=== PATIENT | male | born 1930 | race Caucasian/White ===

== ENCOUNTER 2018-03-12 09:18 | Emergency (ER) | payer OTHER ==
[~2018-03-12] VITALS: Ht 175.3 cm; Wt 54.0 kg
--- NOTE | 2018-03-12 09:20 | NUR ---
MELVIN Loco FROM HOME C/O NEAR SYNCOPE, +ORTHO IN THE FIELD, OP=[id number], TO ER BED 5, HOOKED TO MONITOR, AWAITING MD TAPIA
--- NOTE | 2018-03-12 09:55 | NUR ---
CLOTH STOCK SORTER AT BEDSIDE
[2018-03-12] MEDS ORDERED: IV NS 0.9% 1,000 ML BAG IV ONE (10:00)
[2018-03-12] MEDS ORDERED: IV NS 0.9% 500 ML BAG IV ONE (10:00)
[2018-03-12 10:08] LABS: BASOPHILS # (AUTO) 0.1 /CMM (0.0-0.2); EOSINOPHILS % (AUTO) 3.1 % (0.0-6.0); HEMATOCRIT 38 % (39-51); HEMOGLOBIN 12.6 g/dL (13.5-17.5); LYMPHOCYTES # (AUTO) 2.3 /CMM (0.8-4.8); LYMPHOCYTES % (AUTO) 29.8 % (20.0-44.0); MEAN CORPUSCULAR HGB CONC 33 g/dl (31.0-36.0); MEAN CORPUSCULAR VOLUME 89 fL (80-96); MONOCYTES # (AUTO) 0.5 /CMM (0.1-1.30); MONOCYTES % (AUTO) 7.1 % (2.0-12.0); NEUTROPHILS # (AUTO) 4.5 /CMM (1.8-8.9); PLATELET COUNT (AUTO) 158 /CMM (150-450); RED BLOOD CELL COUNT(AUTO) 4.33 MIL/uL (4.5-6.0); WHITE BLOOD COUNT (AUTO) 7.7 K/uL (4.3-11.0)
--- NOTE | 2018-03-12 10:15 | NUR ---
DAUGHTER SABRINA RICH PROVIDED PHONE NUMBER [phone] AND INSTRUCTED TO CONTACT HER ABOUT PATIENT'S CONDITION
--- NOTE | 2018-03-12 10:30 | NUR ---
PT NOT ABLE TO PROVIDE URINE SAMPLE AT THIS TIME, OFFERED IN AND OUT CATH BUT PREFERRED TO USE URINAL.
[2018-03-12 10:47] LABS: CALCIUM, SERUM 8.9 mg/dL (8.5-10.1); CARBON DIOXIDE 26 mmol/L (21-32); CHLORIDE 103 mmol/L (98-107); CREATININE 1.2 mg/dL (0.6-1.3); GLUCOSE 118 mg/dL (74-106); POTASSIUM 3.9 mmol/L (3.5-5.1); SODIUM SERUM 140 mmol/L (136-145); UREA NITROGEN, BLOOD 29 mg/dL (7-18)
--- NOTE | 2018-03-12 10:55 | NUR ---
URINE SAMPLE SENT TO LAB
--- NOTE | 2018-03-12 11:00 | NUR ---
IV LINE AT LAC NOTED WITH SWELING AND RESISTANCE WHEN FLUSHED WITH NS, REMOVED IV CATHETER WITH GOOD TOLERANCE, IV PERIPHERAL LINE STARTED AT R FOREARM, CONTINUED WITH IV FLUID OF NS.
[2018-03-12 11:18] LABS: APPEARANCE,URINE Clear (CLEAR); BILIRUBIN,URINE Negative (NEGATIVE); BLOOD, URINE Trace-lysed Ery/uL (NEGATIVE); COLOR,URINE Yellow (YELLOW); KETONES,URINE Trace (NEGATIVE); LEUKOCYTE ESTERASE ,URINE Negative (NEGATIVE); NITRITE, URINE Negative (NEGATIVE); PH,URINE 5.5 (5.0-8.0); PROTEIN,URINE Trace mg/dl (NEGATIVE); UGLUCOSE Negative (NEGATIVE); UROBILINOGEN,URINE 0.2 EU/dL (0.2)
[2018-03-12 11:19] LABS: BACTERIA,URINE Rare /HPF (None Seen); RBC,URINE 0-2 /HPF (0-2); SQUAMOUS EPITHELIAL CELL,UR Rare /HPF (None Seen); WBC,URINE 0-2 /HPF (0-3)
--- NOTE | 2018-03-12 12:00 | NUR ---
PT FOR DISCHARGE, CONTACTED DAUGHTER SABRINA RICH [phone], AND INFORMED THAT SHE'LL BE ABLE TO PAN CLEANER PT IN 2 HOURS.
--- NOTE | 2018-03-12 14:38 | NUR ---
Patient discharged to home with daughter in stable condition. Written and verbal after care instructions given. Patient verbalizes understanding of instruction.
[2018-03-12 14:40] VITALS: BP 148/82
== END 2018-03-12 14:41 | disposition home or self-care (01) ==
LOC: ER 09:20
DX: E86.0 Dehydration (principal); I95.1 Orthostatic hypotension
CPT/HCPCS: 36415; 71045; 80048; 81001; 84484; 85025; 93005 ×2; 96360; 99284; A4606; J7030; J7040; 81000-TC; Z7610

== ENCOUNTER 2019-06-11 20:01 | Emergency (ER) | payer OTHER ==
[~2019-06-11] VITALS: Ht 182.9 cm; Wt 45.4 kg
--- NOTE | 2019-06-11 20:15 | NUR ---
Pt BIBRA C/O GLF, PER EMS, "Pt trying to get out of bed." Daughter at bedside states pt was at [facility] getting treated for C.diff. Patient a/ox1-2, confused at times, breathing even and unlabored, no sob noted, noted with laceration on head.
[2019-06-11] MEDS ORDERED: LIDOCAINE 1%-EPI 1:100,000 20 ML VIAL TP ONE (20:30)
[2019-06-11] MEDS ORDERED: IV NS 0.9% 1,000 ML BAG IV ONE (20:30)
[2019-06-11] MEDS ORDERED: LIDOCAINE 1%-EPI 1:100,000 20 ML VIAL ONE (20:49)
[2019-06-11 20:54] LABS: BASOPHILS % (AUTO) 0.4 % (0.0-2.0); EOSINOPHILS % (AUTO) 0.8 % (0.0-6.0); HEMATOCRIT 30 % (39-51); HEMOGLOBIN 9.7 g/dL (13.5-17.5); LYMPHOCYTES # (AUTO) 0.9 /CMM (0.8-4.8); LYMPHOCYTES % (AUTO) 10.8 % (20.0-44.0); MEAN CORPUSCULAR HGB CONC 33 g/dl (31.0-36.0); MEAN CORPUSCULAR VOLUME 79 fL (80-96); MONOCYTES % (AUTO) 11.9 % (2.0-12.0); NEUTROPHILS # (AUTO) 6.2 /CMM (1.8-8.9); NEUTROPHILS % (AUTO) 76.1 % (43.0-81.0); PLATELET COUNT (AUTO) 299 /CMM (150-450); WHITE BLOOD COUNT (AUTO) 8.2 K/uL (4.3-11.0)
[2019-06-11 20:57] LABS: ALBUMIN 2.3 g/dL (3.4-5.0); BILIRUBIN,DIRECT 0.1 mg/dL (0.0-0.2); BILIRUBIN,TOTAL 0.3 mg/dL (0.2-1.0); CALCIUM, SERUM 8.4 mg/dL (8.5-10.1); CREATININE 0.6 mg/dL (0.6-1.3); POTASSIUM 3.7 mmol/L (3.5-5.1); TOTAL PROTEIN, SERUM 6.8 g/dL (6.4-8.2)
--- NOTE | 2019-06-11 21:32 | NUR ---
WOUND CLEANSED. JEFF BUSTILLOSRAS ELECTRIC VEHICLE ELECTRICIAN AT BEDSIDE FOR LAC REPAIR.
--- NOTE | 2019-06-11 21:53 | NUR ---
SPOKE TO JOHNSON AT [facility]. WAITING FOR CALL BACK FROM DR. LINDSAY
--- NOTE | 2019-06-11 22:50 | NUR ---
CALLED [facility] AND SPOKE WITH NURSING LASER MACHINE OPERATOR TIFFANIE FOR POSSIBLE TRANSFER
--- NOTE | 2019-06-11 22:54 | NUR ---
DR. DENNY ON THE PHONE WITH DR. YEPEZ [facility]
--- NOTE | 2019-06-11 22:55 | NUR ---
TRANSFER INFORMATION: PT ACCEPTED TO [facility] ER ACCEPTING MD: DR. YEPEZ NUMBER FOR REPORT: [phone] (PRESS 0 FOR HOBBING PRESS OPERATOR, TRANSFER TO ER)
--- NOTE | 2019-06-11 23:06 | NUR ---
CALLED [facility] FOR TRANSPORTATION. ETA 45MIN TRIP #[id number]
[2019-06-11 23:19] VITALS: BP 159/88
--- NOTE | 2019-06-11 23:19 | NUR ---
REPORT GIVEN TO KRISTEN DELGADO FOR [facility]ZA.
--- NOTE | 2019-06-12 00:18 | NUR ---
PT WAS TRANSFERRED TO [facility] ER UNDER ACLS IN STABLE CONDITION VIA GURNEY. ALL THE BELONGINGS PICKED UP/
== END 2019-06-12 00:21 | disposition short-term general hospital (02) ==
LOC: ER 20:02
DX: S01.01XA Laceration without foreign body of scalp, initial encounter (principal); R41.0 Disorientation, unspecified; R94.31 Abnormal electrocardiogram [ECG] [EKG]; W18.39XA Other fall on same level, initial encounter; Y93.89 Activity, other specified; Y92.89 Other specified places as the place of occurrence of the external cause; Y99.8 Other external cause status
CPT/HCPCS: 12002; 36415; 70450; 72125; 80048; 80076; 82140; 82962; 85025; 93005; 96360; 99285; A6403; J3490; J7030